=== PATIENT | female | born 1985 | race African-American/Black ===

== ENCOUNTER 2022-04-07 12:40 | Emergency (ER) | payer SELFPAY ==
[~2022-04-07] VITALS: Ht 160 cm; Wt 68.0 kg
--- NOTE | 2022-04-07 12:55 | NUR ---
Received pt 37 yrs female came by josse alcantara and SHASHI PT ON [address] OFFICER MADDIE # [id number] And officer Darell # [id number]
--- NOTE | 2022-04-07 13:00 | NUR ---
cxray done AT BED SIDE
--- NOTE | 2022-04-07 13:05 | NUR ---
Lab drow by lab tach
--- NOTE | 2022-04-07 14:25 | NUR ---
[facility] PT ON 6120 BY SHASHI FOR Danger to self and Others at 04/07/22 at 1425 pt with sitter 1:1 natalie TOUSSAINT CNA
--- NOTE | 2022-04-07 15:25 | NUR ---
NO pain no SOB resting and comfortable
--- NOTE | 2022-04-07 15:26 | NUR ---
AMBROSIO SENT TO LAB AND REGGIE COYNE SENT TO LAB
[2022-04-07 15:28] LABS: BASOPHILS # (AUTO) 0.1 K/uL (0.0-0.2); BASOPHILS % (AUTO) 0.3 % (0.0-2.0); EOSINOPHILS % (AUTO) 0.1 % (0.0-6.0); HEMATOCRIT 41 % (33-45); HEMOGLOBIN 13.3 g/dL (11.5-14.8); LYMPHOCYTES % (AUTO) 9.7 % (20.0-44.0); MEAN CORPUSCULAR HGB CONC 33 g/dl (31.0-36.0); MEAN CORPUSCULAR VOLUME 93 fL (82-100); MONOCYTES # (AUTO) 1.5 K/uL (0.1-1.30); MONOCYTES % (AUTO) 7.2 % (2.0-12.0); NEUTROPHILS % (AUTO) 82.7 % (43.0-81.0); PLATELET COUNT (AUTO) 408 K/uL (150-450); RED BLOOD CELL COUNT(AUTO) 4.38 MIL/uL (4.0-5.2); WHITE BLOOD COUNT (AUTO) 20.6 K/uL (4.3-11.0)
[2022-04-07 15:47] LABS: CARBON DIOXIDE 17 mmol/L (21-32); CHLORIDE 104 mmol/L (98-107); CREATININE 1.1 mg/dL (0.6-1.3); GLUCOSE 66 mg/dL (74-106); SODIUM SERUM 140 mmol/L (136-145); UREA NITROGEN, BLOOD 10 mg/dL (7-18)
[2022-04-07 15:53] LABS: ALANINE AMINOTRANSFERASE 42 U/L (12-78); ALBUMIN 4.6 g/dL (3.4-5.0); ALCOHOL, BLOOD < 3 mg/dL (0-0); ALKALINE PHOSPHATASE 60 U/L (46-116); ASPARTATE AMINOTRANSFERASE 48 U/L (15-37); BILIRUBIN,DIRECT 0.3 mg/dL (0.0-0.2); BILIRUBIN,TOTAL 0.8 mg/dL (0.2-1.0); TOTAL PROTEIN, SERUM 8.6 g/dL (6.4-8.2)
[2022-04-07 15:54] LABS: ACETAMINOPHEN 0 ug/ml (10-30)
[2022-04-07 16:02] LABS: BILIRUBIN,URINE SMALL (NEGATIVE); COLOR,URINE YELLOW (YELLOW); LEUKOCYTE ESTERASE ,URINE NEGATIVE (NEGATIVE); NITRITE, URINE NEGATIVE (NEGATIVE); PROTEIN,URINE 30 mg/dl (NEGATIVE); UGLUCOSE NEGATIVE (NEGATIVE); UROBILINOGEN,URINE 0.2 EU/dL (0.2)
[2022-04-07 16:09] LABS: BACTERIA,URINE 1+ /HPF (None Seen); RBC,URINE 21-50 /HPF (0-2); WBC,URINE 0-2 /HPF (0-3)
--- NOTE | 2022-04-07 16:25 | NUR ---
RESTING AND SLEEPY NO COMPLAIN
[2022-04-07] MEDS ORDERED: IV D5/0.45 NACL 1,000 ML IV ONE (17:00)
[2022-04-07] MEDS ORDERED: POTASSIUM CHLORIDE 20 MEQ TAB.PRT.SR PO ONE ×3 (17:00→17:16)
--- NOTE | 2022-04-07 18:25 | NUR ---
SITTER AT BED SIDE
--- NOTE | 2022-04-07 19:24 | NUR ---
HAND OFF ROSSANA RN
--- NOTE | 2022-04-07 19:46 | NUR ---
ACCU CHECK 32
[2022-04-07] MEDS ORDERED: DEXTROSE 50%-WATER 50 ML DISP.SYRIN ONE ×2 (19:51→21:50)
[2022-04-07] MEDS ORDERED: DEXTROSE 50%-WATER 50 ML DISP.SYRIN IVP ONE ×2 (20:00→22:00)
--- NOTE | 2022-04-07 21:10 | NUR ---
PT GIVEN FOOD TO EAT.
[2022-04-08] MEDS ORDERED: OLANZAPINE 10 MG VIAL IM ONE ×2 (01:18→01:30)
[2022-04-08 03:08] LABS: BASOPHILS # (AUTO) 0.1 K/uL (0.0-0.2); BASOPHILS % (AUTO) 0.8 % (0.0-2.0); EOSINOPHILS % (AUTO) 1.8 % (0.0-6.0); HEMATOCRIT 38 % (33-45); HEMOGLOBIN 12.7 g/dL (11.5-14.8); LYMPHOCYTES # (AUTO) 3.5 K/uL (0.8-4.8); LYMPHOCYTES % (AUTO) 31.9 % (20.0-44.0); MEAN CORPUSCULAR HGB CONC 33 g/dl (31.0-36.0); MEAN CORPUSCULAR VOLUME 91 fL (82-100); MONOCYTES # (AUTO) 1.2 K/uL (0.1-1.30); MONOCYTES % (AUTO) 10.8 % (2.0-12.0); NEUTROPHILS % (AUTO) 54.7 % (43.0-81.0); PLATELET COUNT (AUTO) 376 K/uL (150-450); RED BLOOD CELL COUNT(AUTO) 4.19 MIL/uL (4.0-5.2)
[2022-04-08 03:22] LABS: CALCIUM, SERUM 8.6 mg/dL (8.5-10.1); POTASSIUM 3.5 mmol/L (3.5-5.1)
--- NOTE | 2022-04-08 04:30 | NUR ---
PATIENT IN BED RESTING, VSS, NO ACUTE DISTRESS NOTED.
--- NOTE | 2022-04-08 08:00 | NUR ---
Sleeping Soundly NO acute distress VSS
--- NOTE | 2022-04-08 08:35 | NUR ---
BO JEFFREY [phone] ETA 60 MINS.
--- NOTE | 2022-04-08 13:00 | NUR ---
Ate lunch- tolerated well
[2022-04-08] MEDS ORDERED: OLAN5TAB3 PO (13:18)
--- NOTE | 2022-04-08 14:11 | NUR ---
Awake/Alert. Cooperative and compliant. For Discharge- Patient discharged to home in stable condition. Written and verbal after care instructions given. Patient verbalizes understanding of instruction.
[2022-04-08 14:14] VITALS: BP 125/62
== END 2022-04-08 14:14 | disposition home or self-care (01) ==
LOC: ER 12:43
DX: S80.12XA Contusion of left lower leg, initial encounter (principal); S80.812A Abrasion, left lower leg, initial encounter; Y92.410 Unspecified street and highway as the place of occurrence of the external cause; D72.829 Elevated white blood cell count, unspecified; J98.11 Atelectasis; Z20.822 Contact with and (suspected) exposure to COVID-19; E16.2 Hypoglycemia, unspecified; F20.9 Schizophrenia, unspecified
CPT/HCPCS: 99285; 96372; 96374; 96361; 96376; 73590; 85025 ×2; 80048 ×2; 80076; 84703; 81001; 36415 ×2; 82962 ×4; 87426; 80143; 80320; 80307; 71045; J3490 ×2; C9803; G0480